=== PATIENT | female | born 1945 | race Caucasian/White ===

== ENCOUNTER → 2017-07-04 | Outpatient (CLI) | payer MEDICARE, BC ==
[~2017-07-04] MED LIST: CALCIUM1 CAP PO; GLUCOSAMINE PO; PRINZIDE 12.5 M1 TAB PO; SYNTHROID0.05 MG/TA PO; VITAMIN D32000 IU PO; ZOCOR 20MG20 MG PO
== END ==
LOC: MC.RAD 10:29
DX: Z12.31 Encounter for screening mammogram for malignant neoplasm of breast (principal)

== ENCOUNTER → 2018-08-06 | Outpatient (CLI) | payer MEDICARE, BC | LOC: MC.RAD 10:16 | DX: Z12.31 Encounter for screening mammogram for malignant neoplasm of breast (principal) ==

== ENCOUNTER 2019-07-04 07:18 | Day surgery (SDC) | payer MEDICARE, BC ==
[~2019-07-04] VITALS: Ht 175.3 cm; Wt 78.2 kg
[2019-07-04 07:37] VITALS: BP 148/83; PULSE 78; TEMP 97
[2019-07-04] MEDS ORDERED: VITAMINC1000TA PO (07:44)
[2019-07-04 08:55] VITALS: BP 138/63; PULSE 78; TEMP 97.2
[2019-07-04 09:00] VITALS: BP 114/65; PULSE 78
[2019-07-04 09:15] VITALS: BP 136/69; PULSE 89
[2019-07-04 09:30] VITALS: BP 134/63; PULSE 94
--- NOTE | 2019-07-04 11:22 | NUR ---
PT RETURNED FORM ENDO SUITE INTO BAY#6 PER CART. ALERT AND ORIENTATED. LUNGS CLEAR, HRR, BOWEL SOUNDS PRESENT AND ACTIVE. PT REQUESTS COFFEE AND BLUEBERRY MUFFIN. DENIES PAIN OR NAUSEA AT THIS TIME, DAUGHTER AT BEDSIDE, CALL LIGHT IN REACH. WILL CONT TO MONITOR PROGRESS.
--- NOTE | 2019-07-04 11:26 | NUR ---
PT TOLERATING FOOD AND FLUIDS. READY TO GO HOME, DENIES PAIN OR NAUSEA, WILL CONT TO MONITOR, WILL GET DC INFO PACKET PUT TOGETHER.
--- NOTE | 2019-07-04 11:28 | NUR ---
PT A/OX3, DISCHARGE INSTRUCTIONS GIVEN, PT VOICES UNDERSTANDING. DENIES PAIN OR NAUSEA AT THIS TIME. VSS, IV DC'D PER RIGHT WRIST, TOLERATED WELL. PT TAKEN OUT PER AND DISCHARGED INTO DAUGHTERS VEHICLE. DAUGHTER, NICKI JOSE.
== END 2019-07-04 09:30 | disposition home or self-care (01) ==
LOC: SDCO 07:18
DX: Z12.11 Encounter for screening for malignant neoplasm of colon (principal); K57.30 Diverticulosis of large intestine without perforation or abscess without bleeding; I10 Essential (primary) hypertension; E78.00 Pure hypercholesterolemia, unspecified; Z88.0 Allergy status to penicillin; Z86.010 Personal history of colon polyps
CPT/HCPCS: J2250; J3010; J7030

== ENCOUNTER → 2019-09-03 | Outpatient (CLI) | payer MEDICARE ==
[~2019-09-03] MED LIST changes: +VITAMINC1000TA PO
== END ==
LOC: MC.RAD 10:45
DX: Z12.31 Encounter for screening mammogram for malignant neoplasm of breast (principal)

== ENCOUNTER 2019-09-21 17:27 | Inpatient (IN) | payer MEDICARE ==
[~2019-09-21] VITALS: Ht 175.3 cm; Wt 83.8 kg
[2019-09-21 18:10] LABS: HEMOGLOBIN 10.2 g/dl (12.5-16.0); MEAN CELL VOLUME 93 fl (80.0-100.0); MEAN CORPUSCULAR HEMOGLOBIN 31 pg (27.0-31.0); MEAN CORPUSCULAR HGB CONC 33 g/dl (33.0-37.0); MEAN PLATELET VOLUME 8.7 fl (7.4-10.4); PLATELET COUNT 338 K/mm3 (130-400); RED BLOOD COUNT 3.28 M/mm3 (4.10-5.30); REDCELL DISTRIBUTION WIDTH-CV 12.4 % (11.5-14.5)
[2019-09-21 18:19] LABS: HEMATOCRIT 30.5 % (37.0-47.0)
[2019-09-21 18:20] LABS: BILIRUBIN,TOTAL 0.6 mg/dL (0.0-1.0); CALCIUM 8.6 mg/dL (8.4-10.2); CREATININE, serum 0.71 (0.52-1.25); POTASSIUM 3.9 mmol/L (3.4-5.0); TOTAL PROTEIN 5.6 gm/dL (6.4-8.2)
[2019-09-21 18:44] LABS: BAND 3 % (0-10); LYMPHOCYTE 4 % (20.0-51.0); NEUTROPHILS 86 % (42.0-75.2)
[2019-09-21 18:45] LABS: PLATELET ESTIMATE NORMAL (NORMAL)
[2019-09-21 19:33] LABS: COLLECTION METHOD CLEAN CATCH
[2019-09-21 19:41] LABS: MUCOUS Present /lpf; PH 5 (5-8); SQUAMOUS EPITHELIAL 0-2 /hpf; URINE APPEARANCE Hazy; URINE BACTERIA None Seen /hpf; URINE BILIRUBIN Negative (NEGATIVE); URINE BLOOD Negative (NEGATIVE); URINE COLOR Yellow; URINE GLUCOSE Negative (NEGATIVE); URINE KETONE Negative (NEGATIVE); URINE LEUKOCYTE ESTERASE Negative (NEGATIVE); URINE NITRATE Negative (NEGATIVE); URINE PROTEIN(semi-quant) 1+ (NEGATIVE); URINE RBC 0-2 /hpf; URINE UROBILINOGEN Negative (NEGATIVE)
[2019-09-21 22:20] LABS: INR 1.1 (0.8-3.0); PROTHROMBIN TIME 12.9 SECONDS (9.7-12.8)
[2019-09-21 23:54] VITALS: BP 103/42; PULSE 118; TEMP 98.8
[2019-09-22] VITALS: BP 100/46; PULSE 110; TEMP 98.3
[2019-09-22] MEDS ORDERED: ULTRAM 50MG TAB50 MG PO (01:21)
[2019-09-22] MEDS ORDERED: PRIL40 PO (01:43)
[2019-09-22] MEDS ORDERED: XANAX .25M0.25 MG/TA PO (01:44)
[2019-09-22] MEDS ORDERED: PRINIVIL10 MG PO (01:45)
[2019-09-22] MEDS ORDERED: COMPAZINE 110 MG/TAB PO (01:46)
[2019-09-22] MEDS ORDERED: ZOFRAN ODT8 MG PO (01:47)
[2019-09-22 04:00] VITALS: BP 118/53; PULSE 105; TEMP 98.4
--- NOTE | 2019-09-22 07:15 | NUR ---
Bedside report recieved from Shankar AYON. Patient awakens briefly for report, but easily returns to sleep. Denies pain or needs at this time.
[2019-09-22 08:00] VITALS: BP 131/56; PULSE 93; TEMP 98
[2019-09-22 12:00] VITALS: BP 130/80; PULSE 96
--- NOTE | 2019-09-22 13:31 | NUR ---
Attempt to call report to Floridalma AYON, states will call back when available
--- NOTE | 2019-09-22 13:38 | NUR ---
Report given to Floridalma AYON. Will transport to room 351 via wheel chair with daughter at bedside
--- NOTE | 2019-09-22 14:35 | NUR ---
First visit from the heat and frost insulator helper. No needs right now.
--- NOTE | 2019-09-22 15:13 | NUR ---
Transferred to room 351 via wheel chair with daughter at side. Up and ambulates to BR on arrival. Floridalma AYON aware. Patient up to recliner after returning from BR. Call light in reach.
--- NOTE | 2019-09-22 15:20 | NUR ---
Pt arrived to room 351 at this time. She is A/O x4. Her breathing is even and unlabored on RA. Pt reports SOB, worse with exertion, lungs CTA. Pt denies any pain at this time. No N/V at this time. +BS. HRR. 2+ BLE edema present. IVF infusing into PAC without complications. Pt denies any needs at this time. Call light within reach, will continue to monitor.
[2019-09-22 16:10] VITALS: BP 106/90; PULSE 105; TEMP 97.9
[2019-09-22 20:34] VITALS: BP 137/54; PULSE 105; TEMP 98.3
--- NOTE | 2019-09-22 20:35 | NUR ---
PT IN BED, PT REPORTING PAIN 3/10 IN ABDOMEN. DENYING PAIN IN PEREZ LEGS, L FOOT MORE EDEMETOUS THAN R. NO REDNESS OR WARMTH ON BLE. PT LUNGS CLEAR. WATER AND TABLE AT BEDSIDE. PT REQUESTED LIGHTS TURNED OUT AND WARM BLANKETS BROUGHT INTO HER ROOM. MEDICATIONS GIVEN AND EXPLANATIONS OF WHAT THEY WERE FOR WAS GIVEN. AFTER THIS WAS DONE PT HAD NO OTHER REQUESTS AT THIS TIME.
[2019-09-23 00:04] VITALS: BP 138/59; PULSE 98; TEMP 98
--- NOTE | 2019-09-23 02:30 | NUR ---
Patient given IV Zofran as requested for nausea. Voices no further questions, needs, or concerns at this time.
[2019-09-23 03:53] VITALS: BP 140/68; PULSE 104; TEMP 97.6
--- NOTE | 2019-09-23 05:03 | NUR ---
Patient has voiced no further questions, needs, or concerns this shift. Received PRN Zofran once. Resting in bed with call light within reach.
[2019-09-23 07:39] VITALS: BP 151/74; PULSE 100; TEMP 97.5
[2019-09-23 07:43] LABS: BASO % 0.1 % (0.0-2.0); EOS # 0.1 (0.0-0.7); EOS % 1.4 % (0-4.0); GRAN # 5.7 (1.4-6.5); GRAN % 70.5 % (42.2-75.2); LYMPH # 0.9 (1.2-3.4); LYMPH % 11.2 % (20.0-51.0); MEAN CELL VOLUME 96 fl (80.0-100.0); MEAN CORPUSCULAR HGB CONC 32 g/dl (33.0-37.0); MEAN PLATELET VOLUME 8.8 fl (7.4-10.4); MONO # 1.4 (0.1-0.6); MONO % 16.6 % (1.7-9.3); PLATELET COUNT 257 K/mm3 (130-400); RED BLOOD COUNT 2.72 M/mm3 (4.10-5.30); REDCELL DISTRIBUTION WIDTH-CV 12.8 % (11.5-14.5)
--- NOTE | 2019-09-23 07:45 | NUR ---
Pt assessment complete. Pt is sitting up in bed upon entry, she is A/O x4. Her breathing is tachy, she reports SOB on exertion. She reports pain to lower abdomen, no N/V. Reports having three loose stools overnight. IVF infusing without complications, pt has no needs at this time. Call light within reach.
[2019-09-23 07:55] LABS: HEMATOCRIT 26.2 % (37.0-47.0); HEMOGLOBIN 8.5 g/dl (12.5-16.0); MEAN CORPUSCULAR HEMOGLOBIN 31 pg (27.0-31.0)
[2019-09-23 08:05] LABS: ALBUMIN 2.5 gm/dL (3.5-5.0); BILIRUBIN,TOTAL 0.5 mg/dL (0.0-1.0); CALCIUM 7.8 mg/dL (8.4-10.2); CREATININE, serum 0.44 (0.52-1.25); POTASSIUM 3.2 mmol/L (3.4-5.0); TOTAL PROTEIN 4.9 gm/dL (6.4-8.2)
--- NOTE | 2019-09-23 09:24 | NUR ---
SW met with the patient to discuss discharge plan. The patient lives in [place] with her , Jasbir (ph#[phone]). She reports independence with ADLs and does not have any DME. She states that she does have DME available to her, if needed. The patient's PCP is Dr. Ramírez Little and she receives her medications at [facility]. She reports no difficulties obtaining her meds. The patient's advanced directives are in her chart. Her health care agent is her , Jasbir Rivas. The patient plans to return home with her upon discharge. No other additional needs at this time, but SW to continue to follow as needed.
--- NOTE | 2019-09-23 10:25 | NUR ---
Pt up to restroom, SOB. Bilateral thigh high GASPER hose placed. Pt denies any nausea or need for Zofran at this time. Pt awaiting blind hooker to come by.
[2019-09-23 11:57] VITALS: BP 151/67; PULSE 88; TEMP 97.7
--- NOTE | 2019-09-23 12:04 | NUR ---
Follow up visit from the agricultural extension specialist. No needs right now.
[2019-09-23 16:40] VITALS: BP 140/67; PULSE 102; TEMP 97.7
--- NOTE | 2019-09-23 18:08 | NUR ---
Pt reports having several loose stools today, reports this is an ongoing issue. New orders received. Pt denied any pain or nausea through the day. Plan to be NPO after MDN discussed for upcoming procedures. Pt has no other needs at this time. Call light within reach.
--- NOTE | 2019-09-23 19:50 | NUR ---
UPON INTRODUCING MYSELF PT STATED SHE DIDNT KNOW WHERE SHE WAS, SHE BECAME EMOTIONAL AND STARTED CRYING AND ASKING FOR HER FAMILY. SHE ALSO STATED "I DON'T KNOW WHY I'M LIKE THIS, I'M NOT NORMALLY LIKE THIS." AFTER TALKING TO HER SHE STARTED TO CALM DOWN AND BECOME REORIENTED. UPON OTHER VISITS TO THE ROOM PT SEEMED TO BE BETTER, ALERT AND ORIENTED, NORMAL SELF. PT FAMILY AWARE OF EPISODE, BED ALARM TURNED ON. NEW GASPER HOSE BROUGHT IN BUT PT WANTED TO KEEP THE ONES SHE HAD ON (PREVIOUSLY REQUESTED A SMALLER SIZE). CHAIR BROUGHT OVER TO [facility] FOR HER TO WASH HER HAIR REQUESTED. PT DENYING PAIN OR DISCOMFORT, NO DIFFICULTY BREATHING OR PAIN/TENDERNESS/REDNESS/SWELLING IN CALVES. NO OTHER NEEDS AT THIS TIME.
[2019-09-23 20:05] VITALS: BP 153/77; PULSE 106; TEMP 97.8
[2019-09-24 00:33] VITALS: BP 143/59; PULSE 100; TEMP 97.6
[2019-09-24 04:23] VITALS: BP 140/67; PULSE 98; TEMP 97.9
--- NOTE | 2019-09-24 05:02 | NUR ---
1 ep of confusion at beginning of shift, since then AOx4. pt up at 0220 and had hard time going back to sleep but slept well most of night. denies pain/discomfort/nausea. no other needs at this time.
[2019-09-24 06:40] LABS: MEAN CELL VOLUME 95 fl (80.0-100.0); MEAN CORPUSCULAR HGB CONC 32 g/dl (33.0-37.0); MEAN PLATELET VOLUME 8.7 fl (7.4-10.4); PLATELET COUNT 282 K/mm3 (130-400); RED BLOOD COUNT 3.03 M/mm3 (4.10-5.30); REDCELL DISTRIBUTION WIDTH-CV 12.7 % (11.5-14.5)
[2019-09-24 06:47] LABS: HEMATOCRIT 28.9 % (37.0-47.0); HEMOGLOBIN 9.3 g/dl (12.5-16.0); MEAN CORPUSCULAR HEMOGLOBIN 31 pg (27.0-31.0)
[2019-09-24 06:50] LABS: ALBUMIN 2.8 gm/dL (3.5-5.0); BILIRUBIN,TOTAL 0.5 mg/dL (0.0-1.0); CALCIUM 8.2 mg/dL (8.4-10.2); CREATININE, serum 0.46 (0.52-1.25); MAGNESIUM 1.3 mg/dL (1.6-2.3); POTASSIUM 3.6 mmol/L (3.4-5.0); TOTAL PROTEIN 5.4 gm/dL (6.4-8.2)
--- NOTE | 2019-09-24 07:28 | NUR ---
Received report, patient is resting in bed, awake and alert. Respirations are even and nonlabored. She currently denies having any pain. Call light and personal items are within reach.
[2019-09-24 07:40] VITALS: BP 119/62; PULSE 93; TEMP 98.5
--- NOTE | 2019-09-24 07:45 | NUR ---
Patient is awake and alert in room. Is sitting up on the side of the bed. Wishes to be able to go home today providing what the doctor would say. She did cough while I was present and she showed me yellow/green thick sputum. She states this is about the consistency and color it ususally is. Currently denies pain but does state she will sometimes hurt when she coughs. Call light and personal items are within reach.
[2019-09-24 08:46] LABS: BAND 9 % (0-10); EOSINOPHIL 1 % (0-4); LYMPHOCYTE 5 % (20.0-51.0); NEUTROPHILS 72 % (42.0-75.2); PLATELET ESTIMATE NORMAL (NORMAL)
[2019-09-24 12:01] VITALS: BP 122/54; PULSE 96; TEMP 97.8
--- NOTE | 2019-09-24 14:30 | NUR ---
Patient observed ambulating in ibanez with therapy, gait observed to be steady.
[2019-09-24 15:58] VITALS: BP 130/66; PULSE 99; TEMP 97.8
--- NOTE | 2019-09-24 18:10 | NUR ---
Patient is sitting up in bed eating supper. She did earlier request immodium as she stated she had a soft stool. I did notify patient that the medication was typically utilized for diarrhea and she stated that is what she did at home. Currently denies pain. Was provided verbal education when administering PO lasix. She verbalized understanding. Call light and personal items are within reach.
--- NOTE | 2019-09-24 20:10 | NUR ---
At time of assessment, patient is sleeping in bed but is easily aroused with speech. She is alert and oriented, lungs are clear and heart sounds are normal and regular. She does not complain of any pain or N/V but does request Zofran to prevent nausea that she says she always has eventually. Her port site flushes well and the dressing is CDI. She does not voice any further concerns at this time.
[2019-09-24 21:50] VITALS: BP 114/63; PULSE 103; TEMP 98.3
[2019-09-25 01:03] VITALS: BP 126/44; PULSE 97; TEMP 98.2
--- NOTE | 2019-09-25 04:33 | NUR ---
At this time, patient has been partially incontinent of a liquid stool. She got up to the bathroom but did not make it quite in time; some of the stool was dripped on the floor. 2mg immodium administered and patient settled back into bed.
--- NOTE | 2019-09-25 05:27 | NUR ---
Patient has been sleeping on and off throughout the night. She has not complained of pain or nausea today but has requested to receive PRN zofran to prevent nausea. She had one episode of liquid stool this evening and immodium was administered for this. She was made NPO after midnight and is currently resting in bed.
[2019-09-25 05:31] VITALS: BP 124/56; PULSE 98; TEMP 98.2
[2019-09-25 06:27] LABS: MEAN CELL VOLUME 96 fl (80.0-100.0); MEAN CORPUSCULAR HGB CONC 32 g/dl (33.0-37.0); PLATELET COUNT 269 K/mm3 (130-400); RED BLOOD COUNT 3.06 M/mm3 (4.10-5.30); REDCELL DISTRIBUTION WIDTH-CV 12.6 % (11.5-14.5)
[2019-09-25 06:33] LABS: HEMATOCRIT 29.5 % (37.0-47.0); HEMOGLOBIN 9.5 g/dl (12.5-16.0); MEAN CORPUSCULAR HEMOGLOBIN 31 pg (27.0-31.0)
[2019-09-25 06:40] LABS: INR 1.2 (0.8-3.0); PROTHROMBIN TIME 13.6 SECONDS (9.7-12.8)
[2019-09-25 06:45] LABS: ALBUMIN 2.7 gm/dL (3.5-5.0); BILIRUBIN,TOTAL 0.5 mg/dL (0.0-1.0); CREATININE, serum 0.46 (0.52-1.25); MAGNESIUM 1.8 mg/dL (1.6-2.3); POTASSIUM 3.7 mmol/L (3.4-5.0); TOTAL PROTEIN 5.3 gm/dL (6.4-8.2)
[2019-09-25 07:52] VITALS: BP 115/55; PULSE 95; TEMP 98.7
[2019-09-25 07:57] LABS: BAND 11 % (0-10); LYMPHOCYTE 26 % (20.0-51.0); NEUTROPHILS 49 % (42.0-75.2); PLATELET ESTIMATE NORMAL (NORMAL)
--- NOTE | 2019-09-25 10:19 | NUR ---
Patient is alert and oriented. denies pain. complain of mild discomfort in her stomach. family member visiting at bedside.
--- NOTE | 2019-09-25 10:39 | NUR ---
SW attended clinical rounds. The patient's daughter at bedside. The patient is to tentatively discharge later today, 09/24. SW met with the patient to review discharge plan and to present and explain the IM form. The patient verbalized understanding, signed, and she was provided a copy. The patient reports that she would be interested in outpatient PT/OT at [facility] on [facility]. SW contacted the [facility] on [facility]. The bindery machine operator reports that they are now contacting new patient's to set up appointments. CONNIE provided the bindery machine operator with the patient's information. SW updated the patient and the patient's daughter of this. The patient and patient's daughter verbalized understanding and were agreeable to this. SW to fax the patient's discharge orders to [facility] on [address]. No additional needs at this time.
[2019-09-25 11:12] VITALS: BP 123/48; PULSE 95; TEMP 98.5
[2019-09-25] MEDS ORDERED: FERROUS SU325 MG/TAB PO (11:16)
[2019-09-25] MEDS ORDERED: TOPROL XL 25MG25 MG PO (11:17)
[2019-09-25] MEDS ORDERED: LASIX 40MG TABL40 MG PO (11:18)
[2019-09-25] MEDS ORDERED: ANTI-DIARRHEAL2 MG PO (11:19)
[2019-09-25] MEDS ORDERED: OSCAL 500 TAB500 MG PO (11:20)
[2019-09-25] MEDS ORDERED: MAG-OX 400400 MG/TAB PO (11:21)
[2019-09-25] MEDS ORDERED: ELIQUIS 5MG PO (11:23)
--- NOTE | 2019-09-25 14:55 | NUR ---
Kasia, at [facility] on [address], contacted SW to inform that they are only seeing essential patient's at this time. She states that they can contact the patient to schedule an appointment in the future, once things with the COVID-19 calm down. SW informed the patient of this. The patient verbalized understanding. She states that she has lots of things and exercises at home to still stay active when she returns home. No additional needs at this time.
--- NOTE | 2019-09-25 15:28 | NUR ---
patient is currently down getting Paracentesis. report given to NANY Chaparro.
[2019-09-25 15:57] LABS: PERITONEAL FLUID RBC 1000 /mm3 (0-0)
[2019-09-29 03:08] LABS: OVA AND PARASITE XXX; TRICHROME STAIN XXX
== END 2019-09-25 | disposition home or self-care (01) | DRG 176 ==
LOC: COL.ER 17:27 → MEDICAL 22:27 → ICU 22:27 → MEDICAL 09-22 14:59
PROVIDERS: Emergency Medicine; Physician Assistant; ADMIT Hospitalist
PROC: 0W9G3ZZ Drainage of Peritoneal Cavity, Percutaneous Approach (ICD-10-PCS; principal; 2019-09-25)
DX: I26.99 Other pulmonary embolism without acute cor pulmonale (principal); C79.89 Secondary malignant neoplasm of other specified sites; R18.8 Other ascites; E87.1 Hypo-osmolality and hyponatremia; J90 Pleural effusion, not elsewhere classified; E44.0 Moderate protein-calorie malnutrition; I82.453 Acute embolism and thrombosis of peroneal vein, bilateral; K74.60 Unspecified cirrhosis of liver; K21.9 Gastro-esophageal reflux disease without esophagitis; I10 Essential (primary) hypertension; K25.9 Gastric ulcer, unspecified as acute or chronic, without hemorrhage or perforation; I34.0 Nonrheumatic mitral (valve) insufficiency; D64.9 Anemia, unspecified; E87.6 Hypokalemia; E87.8 Other disorders of electrolyte and fluid balance, not elsewhere classified; D72.829 Elevated white blood cell count, unspecified; F41.9 Anxiety disorder, unspecified; E03.9 Hypothyroidism, unspecified; E78.5 Hyperlipidemia, unspecified; Z68.28 Body mass index [BMI] 28.0-28.9, adult; Z79.891 Long term (current) use of opiate analgesic; Z85.07 Personal history of malignant neoplasm of pancreas; Z90.710 Acquired absence of both cervix and uterus; Z87.891 Personal history of nicotine dependence; Z88.0 Allergy status to penicillin
CPT/HCPCS: 99223-AI; 99232-AI; 99233-AI; 99239; C9113; J0780; J1644; J1650; J2405; J3475; J3480; J7030; J7040; Q9967